=== PATIENT | male | born 1940 | race Caucasian/White ===

== ENCOUNTER 2018-03-25 13:43 | Inpatient (IN) | payer OTHER ==
[2018-03-25] MEDS ORDERED: CEFTRIAXONE 1 GM PDS 1 GM in SODIUM CHLORIDE 0.9% 50 ML 50 ML IV ONE (14:54)
[2018-03-25] MEDS ORDERED: CEFTRIAXONE 1 GM PDS ONE (15:14)
[2018-03-25 15:39] LABS: HEMATOCRIT 25 % (39-53); HEMOGLOBIN 8.1 gm/dl (13.5-17.7); MEAN CORPUSCULAR HEMOGLOBIN 29.1 pg (27.0-32.0); MEAN CORPUSCULAR HGB CONC 32.9 gm/dl (32.0-36.0); MEAN CORPUSCULAR VOLUME 89 fL (80-100)
[2018-03-25 15:40] LABS: ALBUMIN 2.5 gm/dl (3.4-5.0); BILIRUBIN,TOTAL 1.2 mg/dl (0.2-1.0); CALCIUM 8.4 mg/dl (8.5-10.1); POTASSIUM 4.1 mMol/L (3.5-5.1); TOTAL PROTEIN 6.3 gm/dl (6.4-8.2)
[2018-03-25 15:46] LABS: CREATININE 2.19 mg/dl (0.80-1.30)
[2018-03-25 15:50] LABS: CARBON DIOXIDE 29.2 mEq/L (21-32)
[2018-03-25 15:56] LABS: ANISOCYTOSIS MOD AMT; BAND NEUTROPHILS % (MANUAL) 17 %; BASOPHILS % (MANUAL) 0 % (0-3); EOSINOPHILS % (MANUAL) 0 % (0-9); LYMPHOCYTES % (MANUAL) 4 % (10-50); METAMYELOCYTES%(MANUAL) 1; MONOCYTES % (MANUAL) 1 % (0-12); NEUTROPHILS % (MANUAL) 77 % (37-80); OVALOCYTES PRESENT; PLATELET MORPHOLOGY COMMENT ADEQUATE; POIKILOCYTOSIS MOD AMT
[2018-03-25 15:57] LABS: BURR CELLS PRESENT
[2018-03-25] MEDS ORDERED: SODIUM CHLORIDE 0.9% 1000ML 1,000 ML IV ONE (16:09)
[2018-03-25 17:11] LABS: INR 1.35 (0.86-1.12)
[2018-03-25] MEDS: ENOXAPARIN 100 MG SOL SC SCH (19:44)
[2018-03-25] MEDS: SODIUM CHLORIDE 0.9% 1000ML 1,000 ML IV SCH (19:45)
[2018-03-25] MEDS: ACETAMINOPHEN 500 MG 500 MG TAB PO PRN (20:19)
[2018-03-25] MEDS: METOPROLOL TARTRATE 50 MG TAB PO SCH (20:19)
[2018-03-26] MEDS: SODIUM CHLORIDE 0.9% 1000ML 1,000 ML IV SCH (05:17)
[2018-03-26] MEDS: ENOXAPARIN 100 MG SOL SC SCH ×2 (06:42→19:23)
[2018-03-26 07:22] LABS: HEMATOCRIT 24 % (39-53); HEMOGLOBIN 7.7 gm/dl (13.5-17.7); MEAN CORPUSCULAR HEMOGLOBIN 28.7 pg (27.0-32.0); MEAN CORPUSCULAR HGB CONC 32.2 gm/dl (32.0-36.0); MEAN CORPUSCULAR VOLUME 89 fL (80-100)
[2018-03-26 07:24] LABS: ALBUMIN 2.2 gm/dl (3.4-5.0); BILIRUBIN,TOTAL 1.1 mg/dl (0.2-1.0); CALCIUM 8.2 mg/dl (8.5-10.1); CREATININE 1.67 mg/dl (0.80-1.30); POTASSIUM 3.7 mMol/L (3.5-5.1); TOTAL PROTEIN 5.8 gm/dl (6.4-8.2)
[2018-03-26 08:00] LABS: BAND NEUTROPHILS % (MANUAL) 36 %; BASOPHILS % (MANUAL) 0 % (0-3); EOSINOPHILS % (MANUAL) 0 % (0-9); LYMPHOCYTES % (MANUAL) 4 % (10-50); MONOCYTES % (MANUAL) 1 % (0-12); NEUTROPHILS % (MANUAL) 59 % (37-80); OVALOCYTES PRESENT; POIKILOCYTOSIS SLIGHT AMT; SPHEROCYTES PRESNT
[2018-03-26 08:01] LABS: BURR CELLS PRESENT
[2018-03-26] MEDS: LEVOFLOXACIN 500 MG TAB PO SCH (08:10)
[2018-03-26] MEDS: METOPROLOL TARTRATE 50 MG TAB PO SCH ×2 (08:10→20:33)
[2018-03-26] MEDS: DILTIAZEM ER 120 MG C24 PO SCH (08:10)
[2018-03-26] MEDS ORDERED: WARFARIN SODIUM 2.5 MG TAB PO SCH ×2 (09:00→18:00)
[2018-03-26] MEDS: ACETAMINOPHEN 500 MG 500 MG TAB PO PRN (22:36)
[2018-03-27] MEDS: ALBUTEROL/IPRATROPIUM 1 VIAL SOL INH PRN (04:30)
[2018-03-27] MEDS: ACETAMINOPHEN 500 MG 500 MG TAB PO PRN ×3 (04:53→23:36)
[2018-03-27 07:06] LABS: CALCIUM 8.1 mg/dl (8.5-10.1); CREATININE 1.45 mg/dl (0.80-1.30); POTASSIUM 3.5 mMol/L (3.5-5.1)
[2018-03-27 07:14] LABS: BASOPHILS % (AUTO) 0 % (0-3); EOSINOPHILS % (AUTO) 0 % (0-9); HEMATOCRIT 21 % (39-53); LYMPHOCYTES % (AUTO) 3.842 % (10-50); MEAN CORPUSCULAR HEMOGLOBIN 29.1 pg (27.0-32.0); MEAN CORPUSCULAR HGB CONC 33.1 gm/dl (32.0-36.0); MEAN CORPUSCULAR VOLUME 88 fL (80-100); MONOCYTES % (AUTO) 5.9 % (0-12); NEUTROPHILS % (AUTO) 89.8 % (37-80)
[2018-03-27 07:17] LABS: CARBON DIOXIDE 29.7 mEq/L (21-32)
[2018-03-27 07:28] LABS: INR 1.2 (0.86-1.12)
[2018-03-27] MEDS: ENOXAPARIN 100 MG SOL SC SCH (07:57)
[2018-03-27] MEDS ORDERED: FUROSEMIDE 20mg SOL IV SCH (08:00)
[2018-03-27] MEDS ORDERED: ENOXAPARIN 40 MG SOL SC SCH (08:15)
[2018-03-27] MEDS: METOPROLOL TARTRATE 50 MG TAB PO SCH ×2 (08:26→20:32)
[2018-03-27] MEDS: LEVOFLOXACIN 500 MG TAB PO SCH (08:26)
[2018-03-27] MEDS: DILTIAZEM ER 120 MG C24 PO SCH (08:26)
[2018-03-27] MEDS ORDERED: TORSEMIDE 20 MG TAB PO SCH (09:00)
[2018-03-27] MEDS: TORSEMIDE 10 MG TABLET PO SCH (09:41)
[2018-03-27 11:18] LABS: ABO B; ANTIBODY SCREEN Negative; UNIT TYPE O NEGATIVE
[2018-03-27 13:39] LABS: RH TYPE Negative
[2018-03-27] MEDS ORDERED: TORSEMIDE 10 MG TABLET PO SCH ×2 (14:00)
[2018-03-27] MEDS ORDERED: WARFARIN SODIUM 2.5 MG TAB PO SCH (18:00)
[2018-03-27] MEDS ORDERED: SODIUM CHLORIDE 0.9% 50 ML 50 ML IV ONE ×3 (18:16→23:11)
[2018-03-27] MEDS ORDERED: CEFAZOLIN SODIUM 1 GM PDS ONE ×3 (18:16→23:11)
[2018-03-27] MEDS: CEFAZOLIN SODIUM 1 GM PDS 1 GM in SODIUM CHLORIDE 0.9% 50 ML 50 ML IV SCH ×2 (18:24→23:36)
[2018-03-27 19:29] LABS: UNIT TYPE B NEGATIVE
[2018-03-27 19:30] LABS: UNIT TYPE B NEGATIVE
[2018-03-27] MEDS: SODIUM CHLORIDE 0.9% FLUSH 10 ML SOL IV PRN (23:37)
[2018-03-28] MEDS ORDERED: SODIUM CHLORIDE 0.9% 50 ML 50 ML IV ONE ×4 (05:28→20:28)
[2018-03-28] MEDS ORDERED: CEFAZOLIN SODIUM 1 GM PDS ONE ×4 (05:28→20:27)
[2018-03-28] MEDS: CEFAZOLIN SODIUM 1 GM PDS 1 GM in SODIUM CHLORIDE 0.9% 50 ML 50 ML IV SCH ×4 (05:41→23:09)
[2018-03-28 07:37] LABS: CALCIUM 8.1 mg/dl (8.5-10.1); CARBON DIOXIDE 32.4 mEq/L (21-32); CREATININE 1.46 mg/dl (0.80-1.30)
[2018-03-28 07:48] LABS: POTASSIUM 2.9 mMol/L (3.5-5.1)
[2018-03-28 07:52] LABS: BASOPHILS % (AUTO) 1 % (0-3); EOSINOPHILS % (AUTO) 0 % (0-9); HEMATOCRIT 28 % (39-53); HEMOGLOBIN 9.1 gm/dl (13.5-17.7); LYMPHOCYTES % (AUTO) 7.685 % (10-50); MEAN CORPUSCULAR HEMOGLOBIN 28.5 pg (27.0-32.0); MEAN CORPUSCULAR HGB CONC 32.2 gm/dl (32.0-36.0); MEAN CORPUSCULAR VOLUME 89 fL (80-100); MONOCYTES % (AUTO) 6.4 % (0-12); NEUTROPHILS % (AUTO) 84.6 % (37-80)
[2018-03-28] MEDS ORDERED: POTASSIUM CHLORIDE 2 MEQ/ML 60 MEQ, LIDOCAINE HCL 1% MDV 2 ML in SODIUM CHLORIDE 0.9% 1... IV ONE (08:00)
[2018-03-28] MEDS ORDERED: POTASSIUM CHLORIDE 10 MEQ TER PO SCH (08:00)
[2018-03-28] MEDS: TORSEMIDE 10 MG TABLET PO SCH (08:41)
[2018-03-28] MEDS: DILTIAZEM ER 120 MG C24 PO SCH (08:41)
[2018-03-28] MEDS: LEVOFLOXACIN 500 MG TAB PO SCH (08:42)
[2018-03-28] MEDS: METOPROLOL TARTRATE 50 MG TAB PO SCH ×2 (08:42→19:50)
[2018-03-28] MEDS ORDERED: ENOXAPARIN 40 MG SOL SC SCH ×2 (09:00)
[2018-03-28] MEDS ORDERED: POTASSIUM CHLORIDE 2 MEQ/ML SOL IV ONE (09:33)
[2018-03-28] MEDS ORDERED: LIDOCAINE HCL 1% MPF 30 SOL ONE (09:33)
[2018-03-28] MEDS: ACETAMINOPHEN 500 MG 500 MG TAB PO PRN ×2 (15:04→20:54)
[2018-03-28] MEDS ORDERED: POTASSIUM CHLORIDE 10 MEQ CAPSULE PO ONE (20:00)
[2018-03-28] MEDS: SODIUM CHLORIDE 0.9% FLUSH 10 ML SOL IV PRN (23:15)
[2018-03-29] MEDS: CEFAZOLIN SODIUM 1 GM PDS 1 GM in SODIUM CHLORIDE 0.9% 50 ML 50 ML IV SCH ×4 (05:21→23:19)
[2018-03-29 07:31] LABS: CALCIUM 8.2 mg/dl (8.5-10.1); CREATININE 1.32 mg/dl (0.80-1.30); POTASSIUM 3.6 mMol/L (3.5-5.1)
[2018-03-29 07:38] LABS: BASOPHILS % (AUTO) 1 % (0-3); EOSINOPHILS % (AUTO) 1 % (0-9); HEMATOCRIT 28 % (39-53); LYMPHOCYTES % (AUTO) 10.55 % (10-50); MEAN CORPUSCULAR HEMOGLOBIN 28.8 pg (27.0-32.0); MEAN CORPUSCULAR HGB CONC 32.5 gm/dl (32.0-36.0); MEAN CORPUSCULAR VOLUME 89 fL (80-100); MONOCYTES % (AUTO) 9.4 % (0-12); NEUTROPHILS % (AUTO) 77.7 % (37-80)
[2018-03-29] MEDS: METOPROLOL TARTRATE 50 MG TAB PO SCH ×2 (07:45→20:04)
[2018-03-29] MEDS: DILTIAZEM ER 120 MG C24 PO SCH (07:45)
[2018-03-29 07:51] LABS: CARBON DIOXIDE 33.1 mEq/L (21-32)
[2018-03-29] MEDS: ALBUTEROL/IPRATROPIUM 1 VIAL SOL INH PRN (08:53)
[2018-03-29] MEDS ORDERED: BISACODYL 5 MG TAB ECT PO ONE (09:00)
[2018-03-29] MEDS: TORSEMIDE 10 MG TABLET PO SCH (09:12)
[2018-03-29] MEDS: LEVOFLOXACIN 500 MG TAB PO SCH (09:13)
[2018-03-29] MEDS: POTASSIUM CHLORIDE 10 MEQ CAPSULE PO SCH (09:18)
[2018-03-29] MEDS ORDERED: CEFAZOLIN SODIUM 1 GM PDS ONE ×2 (10:56→17:35)
[2018-03-29] MEDS: ACETAMINOPHEN 500 MG 500 MG TAB PO PRN (11:21)
[2018-03-29] MEDS ORDERED: DILTIAZEM ER 120 MG C24 PO ONE (13:33)
[2018-03-29] MEDS ORDERED: METOPROLOL TARTRATE 50 MG TAB PO ONE (18:00)
[2018-03-29] MEDS: POLYETHYLENE GLYCOL 17 GM/1 TBS PDS PO SCH (18:10)
[2018-03-30] MEDS: ACETAMINOPHEN 500 MG 500 MG TAB PO PRN (01:19)
[2018-03-30] MEDS: POLYETHYLENE GLYCOL 17 GM/1 TBS PDS PO SCH ×2 (04:08→19:41)
[2018-03-30] MEDS: CEFAZOLIN SODIUM 1 GM PDS 1 GM in SODIUM CHLORIDE 0.9% 50 ML 50 ML IV SCH ×4 (04:27→22:50)
[2018-03-30 07:28] LABS: INR 1.18 (0.86-1.12)
[2018-03-30 08:11] LABS: CALCIUM 8.5 mg/dl (8.5-10.1); CARBON DIOXIDE 32.9 mEq/L (21-32); CREATININE 1.32 mg/dl (0.80-1.30); POTASSIUM 3.6 mMol/L (3.5-5.1)
[2018-03-30 08:12] LABS: BASOPHILS % (AUTO) 1 % (0-3); EOSINOPHILS % (AUTO) 2 % (0-9); HEMATOCRIT 30 % (39-53); HEMOGLOBIN 9.7 gm/dl (13.5-17.7); LYMPHOCYTES % (AUTO) 17.43 % (10-50); MEAN CORPUSCULAR HEMOGLOBIN 28.7 pg (27.0-32.0); MEAN CORPUSCULAR HGB CONC 32.1 gm/dl (32.0-36.0); MEAN CORPUSCULAR VOLUME 89 fL (80-100); MONOCYTES % (AUTO) 6.9 % (0-12); NEUTROPHILS % (AUTO) 73.6 % (37-80)
[2018-03-30] MEDS: DILTIAZEM ER 120 MG C24 PO SCH (08:20)
[2018-03-30] MEDS: METOPROLOL TARTRATE 50 MG TAB PO SCH ×3 (08:20→20:49)
[2018-03-30] MEDS: TORSEMIDE 10 MG TABLET PO SCH (09:02)
[2018-03-30] MEDS: LEVOFLOXACIN 500 MG TAB PO SCH (09:02)
[2018-03-30] MEDS: POTASSIUM CHLORIDE 10 MEQ CAPSULE PO SCH (09:07)
[2018-03-30] MEDS: ENOXAPARIN 100 MG SOL SC SCH ×2 (09:16→21:04)
[2018-03-30] MEDS: GLIPIZIDE 5 MG TAB PO SCH ×2 (09:17→20:49)
[2018-03-30] MEDS ORDERED: CEFTRIAXONE 1 GM PDS ONE (11:23)
[2018-03-30] MEDS ORDERED: SODIUM CHLORIDE 0.9% 50 ML 50 ML IV ONE ×3 (11:23→22:46)
[2018-03-30] MEDS ORDERED: CEFAZOLIN SODIUM 1 GM PDS ONE ×2 (16:44→22:46)
[2018-03-30] MEDS: SODIUM CHLORIDE 0.9% FLUSH 10 ML SOL IV PRN ×2 (17:05→20:49)
[2018-03-31] MEDS: ACETAMINOPHEN 500 MG 500 MG TAB PO PRN ×3 (01:23→20:35)
[2018-03-31] MEDS: POLYETHYLENE GLYCOL 17 GM/1 TBS PDS PO SCH (04:04)
[2018-03-31] MEDS ORDERED: SODIUM CHLORIDE 0.9% 50 ML 50 ML IV ONE (05:11)
[2018-03-31] MEDS ORDERED: CEFAZOLIN SODIUM 1 GM PDS ONE (05:11)
[2018-03-31] MEDS: SODIUM CHLORIDE 0.9% FLUSH 10 ML SOL IV PRN (05:17)
[2018-03-31] MEDS: CEFAZOLIN SODIUM 1 GM PDS 1 GM in SODIUM CHLORIDE 0.9% 50 ML 50 ML IV SCH (05:17)
[2018-03-31 07:26] LABS: BASOPHILS % (AUTO) 1 % (0-3); EOSINOPHILS % (AUTO) 1 % (0-9); HEMATOCRIT 28 % (39-53); HEMOGLOBIN 9.3 gm/dl (13.5-17.7); LYMPHOCYTES % (AUTO) 15.96 % (10-50); MEAN CORPUSCULAR HEMOGLOBIN 28.9 pg (27.0-32.0); MEAN CORPUSCULAR VOLUME 88 fL (80-100); MONOCYTES % (AUTO) 8.9 % (0-12); NEUTROPHILS % (AUTO) 72.5 % (37-80)
[2018-03-31 07:38] LABS: CALCIUM 8.2 mg/dl (8.5-10.1); CREATININE 1.26 mg/dl (0.80-1.30); POTASSIUM 3.6 mMol/L (3.5-5.1)
[2018-03-31 07:42] LABS: CARBON DIOXIDE 33.2 mEq/L (21-32)
[2018-03-31] MEDS: METOPROLOL TARTRATE 50 MG TAB PO SCH (08:15)
[2018-03-31] MEDS: TORSEMIDE 10 MG TABLET PO SCH (08:15)
[2018-03-31] MEDS: LEVOFLOXACIN 500 MG TAB PO SCH (08:16)
[2018-03-31] MEDS: GLIPIZIDE 5 MG TAB PO SCH ×2 (08:16→17:39)
[2018-03-31] MEDS: DILTIAZEM ER 120 MG C24 PO SCH (08:16)
[2018-03-31] MEDS: ENOXAPARIN 100 MG SOL SC SCH ×2 (09:03→20:34)
[2018-03-31] MEDS: CEPHALEXIN 250 MG/5 ML BOTTLE PO SCH ×3 (10:09→20:34)
[2018-03-31] MEDS ORDERED: METOPROLOL SUCCINATE 50 MG ER TAB PO SCH (21:00)
[2018-04-01] MEDS: CEPHALEXIN 250 MG/5 ML BOTTLE PO SCH ×2 (02:24→09:20)
[2018-04-01] MEDS: ACETAMINOPHEN 500 MG 500 MG TAB PO PRN ×2 (02:25→09:21)
[2018-04-01 07:07] LABS: CREATININE 1.3 mg/dl (0.80-1.30); POTASSIUM 3.7 mMol/L (3.5-5.1)
[2018-04-01 07:13] LABS: CARBON DIOXIDE 34.8 mEq/L (21-32)
[2018-04-01 07:32] LABS: BASOPHILS % (AUTO) 1 % (0-3); EOSINOPHILS % (AUTO) 1 % (0-9); HEMATOCRIT 31 % (39-53); HEMOGLOBIN 9.8 gm/dl (13.5-17.7); LYMPHOCYTES % (AUTO) 12.86 % (10-50); MEAN CORPUSCULAR HEMOGLOBIN 28.3 pg (27.0-32.0); MEAN CORPUSCULAR HGB CONC 32.1 gm/dl (32.0-36.0); MEAN CORPUSCULAR VOLUME 88 fL (80-100); NEUTROPHILS % (AUTO) 75.2 % (37-80)
[2018-04-01 07:51] LABS: INR 1.18 (0.86-1.12)
[2018-04-01 09:02] VITALS: BP 149/96; PULSE 104; RESP 16; TEMP 98.6; O2SAT 95
[2018-04-01] MEDS: ENOXAPARIN 100 MG SOL SC SCH (09:20)
[2018-04-01] MEDS: DILTIAZEM ER 120 MG C24 PO SCH (09:21)
[2018-04-01] MEDS: TORSEMIDE 10 MG TABLET PO SCH (09:21)
[2018-04-01] MEDS: LEVOFLOXACIN 500 MG TAB PO SCH (09:21)
[2018-04-01] MEDS: GLIPIZIDE 5 MG TAB PO SCH (09:22)
== END 2018-04-01 14:00 | disposition home or self-care (01) | DRG 603 ==
LOC: ED 13:43 → ACUTE CARE 16:20
PROVIDERS: ADMIT Family Medicine; ATTEND Family Medicine
DX: L03.115 Cellulitis of right lower limb (principal); N17.9 Acute kidney failure, unspecified; E87.1 Hypo-osmolality and hyponatremia; K62.5 Hemorrhage of anus and rectum; E11.9 Type 2 diabetes mellitus without complications; Z79.01 Long term (current) use of anticoagulants; I48.91 Unspecified atrial fibrillation; I10 Essential (primary) hypertension; S81.831A Puncture wound without foreign body, right lower leg, initial encounter; I50.9 Heart failure, unspecified; D64.9 Anemia, unspecified; D72.829 Elevated white blood cell count, unspecified
CPT/HCPCS: 36415; 80048; 80053; 82962; 84132; 85007; 85025; 85027; 85610; 86850; 86900; 86901; 86920; 87040; 87070; 87077; 87186; 93012; 93306; 94640; 96365; 99070; 99282; 99283; J0690; J0696; J1650; J3480; P9016; A4450; A6232; A6446; A9270-GY; J2001

== ENCOUNTER 2018-06-20 10:14 | Inpatient (IN) | payer OTHER ==
[2018-06-20 11:52] LABS: ABO B; ANTIBODY SCREEN Negative; RH TYPE Negative
[2018-06-20] MEDS ORDERED: DOCUSATE SODIUM 100 MG SGL PO PRN (14:26)
[2018-06-20] MEDS ORDERED: POTASSIUM CHLORIDE 2 MEQ/ML 60 MEQ, LIDOCAINE HCL 1% MDV 2 ML in SODIUM CHLORIDE 0.9% 1... IV ONE (14:31)
[2018-06-20] MEDS ORDERED: POTASSIUM CHLORIDE 2 MEQ/ML SOL IV ONE (15:08)
[2018-06-20] MEDS: TORSEMIDE 10 MG TABLET PO SCH (15:14)
[2018-06-20] MEDS ORDERED: LIDOCAINE HCL 1% MPF 30 SOL ONE (15:19)
[2018-06-20] MEDS: SODIUM CHLORIDE 0.9% FLUSH 10 ML SOL IV PRN (15:22)
[2018-06-20 15:55] LABS: UNIT TYPE B NEGATIVE
[2018-06-20 15:56] LABS: UNIT TYPE B NEGATIVE
[2018-06-20] MEDS: SODIUM CHLORIDE 0.9% 500 ML 500 ML IV SCH (16:08)
[2018-06-20] MEDS: FUROSEMIDE 40 MG SOL IV SCH ×2 (18:02→19:57)
[2018-06-20] MEDS: ACETAMINOPHEN 500 MG 500 MG TAB PO PRN (18:34)
[2018-06-20] MEDS: METOPROLOL SUCCINATE 50 MG ER TAB PO SCH (20:08)
[2018-06-20] MEDS: ATORVASTATIN 10 MG TAB PO SCH (20:16)
[2018-06-21 07:29] LABS: BASOPHILS % (AUTO) 1 % (0-3); EOSINOPHILS % (AUTO) 1 % (0-9); HEMATOCRIT 26 % (39-53); HEMOGLOBIN 8.2 gm/dl (13.5-17.7); LYMPHOCYTES % (AUTO) 18.2 % (10-50); MEAN CORPUSCULAR HEMOGLOBIN 27.8 pg (27.0-32.0); MEAN CORPUSCULAR HGB CONC 31.9 gm/dl (32.0-36.0); MEAN CORPUSCULAR VOLUME 87 fL (80-100); MONOCYTES % (AUTO) 8.9 % (0-12); NEUTROPHILS % (AUTO) 71.3 % (37-80)
[2018-06-21 07:45] LABS: CALCIUM 8.1 mg/dl (8.5-10.1); CREATININE 1.52 mg/dl (0.80-1.30)
[2018-06-21 07:51] LABS: CARBON DIOXIDE 35.3 mEq/L (21-32)
[2018-06-21] MEDS: POTASSIUM CHLORIDE 10 MEQ TER PO SCH (09:02)
[2018-06-21] MEDS: TORSEMIDE 10 MG TABLET PO SCH (09:02)
[2018-06-21] MEDS: DILTIAZEM ER 120 MG C24 PO SCH (09:02)
[2018-06-21] MEDS: SODIUM CHLORIDE 0.9% FLUSH 10 ML SOL IV PRN (09:06)
[2018-06-21] MEDS ORDERED: POTASSIUM CHLORIDE 2 MEQ/ML 60 MEQ, LIDOCAINE HCL 1% MDV 2 ML in SODIUM CHLORIDE 0.9% 1... IV ONE (09:28)
[2018-06-21] MEDS ORDERED: FUROSEMIDE 40 MG SOL IV SCH (09:30)
[2018-06-21] MEDS ORDERED: LIDOCAINE HCL 1% MPF 30 SOL ONE (09:45)
[2018-06-21] MEDS ORDERED: POTASSIUM CHLORIDE 2 MEQ/ML SOL IV ONE (09:46)
[2018-06-21] MEDS ORDERED: PEG ELECTROLYTE LAVAGE SOLUT 4000 ML PDS PO SCH (10:30)
[2018-06-21 11:55] LABS: ABO B; ANTIBODY SCREEN Negative; RH TYPE Negative; UNIT TYPE O NEGATIVE
[2018-06-21 11:57] LABS: UNIT TYPE O NEGATIVE
[2018-06-21] MEDS ORDERED: POTASSIUM CHLORIDE 10 MEQ TER PO SCH (12:00)
[2018-06-21] MEDS: SODIUM CHLORIDE 0.9% 500 ML 500 ML IV SCH (12:15)
[2018-06-21] MEDS: FUROSEMIDE 40 MG SOL IV SCH (14:15)
[2018-06-21 17:24] LABS: CALCIUM 8.4 mg/dl (8.5-10.1); CARBON DIOXIDE 34.3 mEq/L (21-32); CREATININE 1.51 mg/dl (0.80-1.30); INR 1.23 (0.86-1.12)
[2018-06-21] MEDS: ATORVASTATIN 10 MG TAB PO SCH (21:25)
[2018-06-21] MEDS: METOPROLOL SUCCINATE 50 MG ER TAB PO SCH (21:26)
[2018-06-21] MEDS: ACETAMINOPHEN 500 MG 500 MG TAB PO PRN (21:30)
[2018-06-22 07:23] LABS: CALCIUM 8.3 mg/dl (8.5-10.1); CREATININE 1.4 mg/dl (0.80-1.30); POTASSIUM 3.4 mMol/L (3.5-5.1)
[2018-06-22 07:24] LABS: BASOPHILS % (AUTO) 1 % (0-3); EOSINOPHILS % (AUTO) 1 % (0-9); HEMATOCRIT 29 % (39-53); HEMOGLOBIN 9.1 gm/dl (13.5-17.7); LYMPHOCYTES % (AUTO) 18.4 % (10-50); MEAN CORPUSCULAR HEMOGLOBIN 27.2 pg (27.0-32.0); MEAN CORPUSCULAR HGB CONC 31.3 gm/dl (32.0-36.0); MEAN CORPUSCULAR VOLUME 87 fL (80-100); MONOCYTES % (AUTO) 8.8 % (0-12); NEUTROPHILS % (AUTO) 70.3 % (37-80)
[2018-06-22] MEDS ORDERED: PROPOFOL 500 MG/50 ML EMU IV ONE (07:37)
[2018-06-22] MEDS ORDERED: FUROSEMIDE 20mg SOL IV SCH (08:15)
[2018-06-22] MEDS: DILTIAZEM ER 120 MG C24 PO SCH (09:04)
[2018-06-22 09:29] LABS: UNIT TYPE O NEGATIVE
[2018-06-22 11:41] VITALS: RESP 20
[2018-06-22] MEDS ORDERED: POTASSIUM CHLORIDE 10 MEQ TER PO SCH (12:00)
[2018-06-22] MEDS: POTASSIUM CHLORIDE 10 MEQ TER PO SCH (12:23)
[2018-06-22] MEDS: TORSEMIDE 10 MG TABLET PO SCH (12:24)
[2018-06-22 15:11] LABS: CALCIUM 8.7 mg/dl (8.5-10.1); CARBON DIOXIDE 36.2 mEq/L (21-32); CREATININE 1.35 mg/dl (0.80-1.30); POTASSIUM 3.6 mMol/L (3.5-5.1)
[2018-06-22 16:39] VITALS: BP 145/84; PULSE 67; TEMP 97.3; O2SAT 97
== END 2018-06-22 18:25 | disposition home or self-care (01) | DRG 812 ==
LOC: ACUTE CARE 10:24
PROVIDERS: ADMIT Family Medicine; ATTEND Family Medicine
PROC: 30233N1 Transfusion of Nonautologous Red Blood Cells into Peripheral Vein, Percutaneous Approach (ICD-10-PCS; principal; 2018-06-20)
PROC: 30233N1 Transfusion of Nonautologous Red Blood Cells into Peripheral Vein, Percutaneous Approach (ICD-10-PCS; 2018-06-21)
PROC: 0DBK8ZX Excision of Ascending Colon, Via Natural or Artificial Opening Endoscopic, Diagnostic (ICD-10-PCS; 2018-06-22)
PROC: 0DBN8ZX Excision of Sigmoid Colon, Via Natural or Artificial Opening Endoscopic, Diagnostic (ICD-10-PCS; 2018-06-22)
PROC: 0DBM8ZX Excision of Descending Colon, Via Natural or Artificial Opening Endoscopic, Diagnostic (ICD-10-PCS; 2018-06-22)
PROC: 0DBH8ZZ Excision of Cecum, Via Natural or Artificial Opening Endoscopic (ICD-10-PCS; 2018-06-22)
DX: D64.9 Anemia, unspecified (principal); E87.1 Hypo-osmolality and hyponatremia; K92.1 Melena; K57.32 Diverticulitis of large intestine without perforation or abscess without bleeding; I48.91 Unspecified atrial fibrillation; E87.6 Hypokalemia; R06.02 Shortness of breath; R19.7 Diarrhea, unspecified; R42 Dizziness and giddiness; I50.9 Heart failure, unspecified; Z79.01 Long term (current) use of anticoagulants; Q82.0 Hereditary lymphedema; Z80.0 Family history of malignant neoplasm of digestive organs; K64.9 Unspecified hemorrhoids; K63.5 Polyp of colon; D12.2 Benign neoplasm of ascending colon; D12.4 Benign neoplasm of descending colon; D12.5 Benign neoplasm of sigmoid colon
CPT/HCPCS: 36415; 80048; 82962; 85018; 85025; 85610; 86850; 86900; 86901; 86920; 93012; 99070; J1940; J3480; P9016; A9270-GY; J2001; J2704

== ENCOUNTER 2018-08-12 12:35 | Inpatient (IN) | payer OTHER ==
[2018-08-12] MEDS ORDERED: SODIUM CHLORIDE 0.9% FLUSH 10 ML SOL IV PRN (12:44)
[2018-08-12] MEDS ORDERED: FUROSEMIDE 20mg SOL IV SCH (12:45)
[2018-08-12] MEDS ORDERED: SODIUM CHLORIDE 0.9% 500 ML 500 ML IV SCH (12:45)
[2018-08-12] MEDS ORDERED: ACETAMINOPHEN 500 MG 500 MG TAB PO PRN (15:12)
[2018-08-12] MEDS ORDERED: DOCUSATE SODIUM 100 MG SGL PO PRN (15:12)
[2018-08-12] MEDS ORDERED: DILTIAZEM ER 120 MG C24 PO SCH (15:15)
[2018-08-12] MEDS ORDERED: SODIUM CHLORIDE 0.9% 1000ML 1,000 ML IV SCH (15:15)
[2018-08-12] MEDS: SODIUM CHLORIDE 0.9% 1000ML 1,000 ML IV SCH (15:41)
[2018-08-12] MEDS: SODIUM CHLORIDE 0.9% FLUSH 10 ML SOL IV SCH ×2 (15:49→20:37)
[2018-08-12 19:13] LABS: ABO B; ANTIBODY SCREEN Negative; RH TYPE Negative; UNIT TYPE O NEGATIVE
[2018-08-12] MEDS: MECLIZINE HYDROCHLORIDE 12.5 MG TAB PO SCH (20:26)
[2018-08-12] MEDS: TRAZODONE HYDROCHLORIDE 50 MG TAB PO SCH (20:27)
[2018-08-13] MEDS: SODIUM CHLORIDE 0.9% 1000ML 1,000 ML IV SCH ×2 (03:00→12:40)
[2018-08-13] MEDS: SODIUM CHLORIDE 0.9% FLUSH 10 ML SOL IV SCH ×3 (05:09→20:59)
[2018-08-13 07:40] LABS: BASOPHILS % (AUTO) 1 % (0-3); EOSINOPHILS % (AUTO) 5 % (0-9); HEMATOCRIT 25 % (39-53); HEMOGLOBIN 7.6 gm/dl (13.5-17.7); LYMPHOCYTES % (AUTO) 21.3 % (10-50); MEAN CORPUSCULAR HEMOGLOBIN 27.1 pg (27.0-32.0); MEAN CORPUSCULAR HGB CONC 30.9 gm/dl (32.0-36.0); MEAN CORPUSCULAR VOLUME 88 fL (80-100); MONOCYTES % (AUTO) 8.9 % (0-12); NEUTROPHILS % (AUTO) 63.3 % (37-80)
[2018-08-13 07:42] LABS: CALCIUM 8.4 mg/dl (8.5-10.1); CARBON DIOXIDE 28.7 mEq/L (21-32); CREATININE 2.02 mg/dl (0.80-1.30); POTASSIUM 4.4 mMol/L (3.5-5.1)
[2018-08-13 08:05] LABS: ALBUMIN 2.3 gm/dl (3.4-5.0); BILIRUBIN,TOTAL 2.7 mg/dl (0.2-1.0); TOTAL PROTEIN 5.5 gm/dl (6.4-8.2)
[2018-08-13] MEDS ORDERED: LORAZEPAM 0.5 MG TAB PO PRN (08:31)
[2018-08-13] MEDS ORDERED: DILTIAZEM ER 120 MG C24 PO SCH (09:00)
[2018-08-13 09:28] LABS: UNIT TYPE O NEGATIVE
[2018-08-13 09:29] LABS: UNIT TYPE O NEGATIVE
[2018-08-13] MEDS: DILTIAZEM ER 120 MG C24 PO SCH (09:53)
[2018-08-13] MEDS ORDERED: FUROSEMIDE 20mg SOL IV SCH (12:45)
[2018-08-13] MEDS: MECLIZINE HYDROCHLORIDE 12.5 MG TAB PO SCH (21:00)
[2018-08-13] MEDS: TRAZODONE HYDROCHLORIDE 50 MG TAB PO SCH (21:00)
[2018-08-14] MEDS: SODIUM CHLORIDE 0.9% FLUSH 10 ML SOL IV SCH (06:08)
[2018-08-14 07:28] LABS: ALBUMIN 2.2 gm/dl (3.4-5.0); BILIRUBIN,TOTAL 1.9 mg/dl (0.2-1.0); CALCIUM 8.3 mg/dl (8.5-10.1); CARBON DIOXIDE 27.7 mEq/L (21-32); CREATININE 2.01 mg/dl (0.80-1.30); TOTAL PROTEIN 5.4 gm/dl (6.4-8.2)
[2018-08-14 07:34] LABS: BASOPHILS % (AUTO) 1 % (0-3); EOSINOPHILS % (AUTO) 6 % (0-9); HEMATOCRIT 28 % (39-53); HEMOGLOBIN 8.9 gm/dl (13.5-17.7); LYMPHOCYTES % (AUTO) 16.9 % (10-50); MEAN CORPUSCULAR HEMOGLOBIN 27.8 pg (27.0-32.0); MEAN CORPUSCULAR HGB CONC 32.2 gm/dl (32.0-36.0); MEAN CORPUSCULAR VOLUME 86 fL (80-100); MONOCYTES % (AUTO) 7.5 % (0-12); NEUTROPHILS % (AUTO) 67.8 % (37-80)
[2018-08-14] MEDS ORDERED: TORSEMIDE 10 MG TABLET PO SCH (09:00)
[2018-08-14] MEDS: DILTIAZEM ER 120 MG C24 PO SCH (09:11)
[2018-08-14 17:39] VITALS: BP 129/75; PULSE 89; RESP 20; TEMP 97.3; O2SAT 99
== END 2018-08-14 18:20 | disposition home or self-care (01) | DRG 641 ==
LOC: ACUTE CARE 12:50
PROVIDERS: ADMIT Family Medicine; ATTEND Family Medicine
PROC: 30233N1 Transfusion of Nonautologous Red Blood Cells into Peripheral Vein, Percutaneous Approach (ICD-10-PCS; principal; 2018-08-13)
DX: E87.5 Hyperkalemia (principal); I50.22 Chronic systolic (congestive) heart failure; R17 Unspecified jaundice; R94.5 Abnormal results of liver function studies; I48.91 Unspecified atrial fibrillation; E87.1 Hypo-osmolality and hyponatremia; D64.9 Anemia, unspecified; R06.02 Shortness of breath
CPT/HCPCS: 36415; 71046; 72120; 80053; 82962; 85018; 85025; 86850; 86900; 86901; 86920; 99070; J1940; P9016; A9270-GY

== ENCOUNTER 2018-10-02 09:34 | Inpatient (IN) | payer OTHER ==
[2018-10-02] MEDS ORDERED: POTASSIUM CHLORIDE 2 MEQ/ML 40 MEQ, LIDOCAINE HCL 1% MDV 2 ML in SODIUM CHLORIDE 0.9% 5... IV ONE (09:36)
[2018-10-02] MEDS ORDERED: POTASSIUM CHLORIDE 10 MEQ CAPSULE PO ONE (09:36)
[2018-10-02] MEDS ORDERED: METOLAZONE 2.5 MG TAB PO ONE (09:40)
[2018-10-02] MEDS ORDERED: POTASSIUM CHLORIDE 10 MEQ TER ONE (11:48)
[2018-10-02] MEDS ORDERED: POTASSIUM CHLORIDE 2 MEQ/ML SOL IV ONE (11:49)
[2018-10-02] MEDS ORDERED: LIDOCAINE HCL 1% MPF 30 SOL ONE (11:59)
[2018-10-02] MEDS ORDERED: FUROSEMIDE 40 MG SOL IV ONE ×2 (14:39→19:17)
[2018-10-02] MEDS: SODIUM CHLORIDE 0.9% FLUSH 10 ML SOL IV SCH ×2 (15:00→21:20)
[2018-10-02 19:50] LABS: POTASSIUM 3.8 mMol/L (3.5-5.1)
[2018-10-02 19:56] LABS: CALCIUM 8.5 mg/dl (8.5-10.1); CARBON DIOXIDE 34.8 mEq/L (21-32); CREATININE 1.8 mg/dl (0.80-1.30)
[2018-10-02] MEDS ORDERED: POTASSIUM CHLORIDE 10 MEQ TER PO ONE (20:26)
[2018-10-02] MEDS ORDERED: ATORVASTATIN 10 MG TAB ONE (20:55)
[2018-10-02] MEDS ORDERED: POTASSIUM CHLORIDE 10 MEQ CAPSULE PO SCH (21:00)
[2018-10-02] MEDS ORDERED: ATORVASTATIN CALCIUM 80 MG TAB PO SCH (21:00)
[2018-10-02] MEDS: ACETAMINOPHEN 500 MG 500 MG TAB PO PRN (21:08)
[2018-10-02] MEDS: MECLIZINE HYDROCHLORIDE 12.5 MG TAB PO SCH (21:08)
[2018-10-02] MEDS: TRAZODONE HYDROCHLORIDE 50 MG TAB PO SCH (21:08)
[2018-10-03] MEDS ORDERED: PATIENT EDUCATION 1 MISC PRN (00:28)
[2018-10-03] MEDS: SODIUM CHLORIDE 0.9% FLUSH 10 ML SOL IV SCH ×5 (01:29→21:26)
[2018-10-03] MEDS: ACETAMINOPHEN 500 MG 500 MG TAB PO PRN ×2 (06:37→21:28)
[2018-10-03 07:47] LABS: BASOPHILS % (AUTO) 1 % (0-3); EOSINOPHILS % (AUTO) 2 % (0-9); HEMATOCRIT 28 % (39-53); HEMOGLOBIN 8.7 gm/dl (13.5-17.7); LYMPHOCYTES % (AUTO) 9.7 % (10-50); MEAN CORPUSCULAR HEMOGLOBIN 28.7 pg (27.0-32.0); MEAN CORPUSCULAR HGB CONC 31.3 gm/dl (32.0-36.0); MEAN CORPUSCULAR VOLUME 92 fL (80-100); MONOCYTES % (AUTO) 8.3 % (0-12); NEUTROPHILS % (AUTO) 79.6 % (37-80)
[2018-10-03 07:52] LABS: CALCIUM 8.9 mg/dl (8.5-10.1); CREATININE 1.63 mg/dl (0.80-1.30); POTASSIUM 3.2 mMol/L (3.5-5.1)
[2018-10-03] MEDS ORDERED: FUROSEMIDE 40 MG SOL IV SCH ×3 (09:00→14:00)
[2018-10-03] MEDS: MULTIVITAMIN2 1 EA TAB PO SCH (09:40)
[2018-10-03] MEDS: METOLAZONE 2.5 MG TABLET PO SCH ×2 (09:40→13:10)
[2018-10-03] MEDS: ASCORBIC ACID 500 MG TAB PO SCH (09:40)
[2018-10-03] MEDS: DILTIAZEM ER 120 MG C24 PO SCH (09:40)
[2018-10-03] MEDS: POTASSIUM CHLORIDE 10 MEQ TER PO SCH ×3 (09:40→15:55)
[2018-10-03] MEDS ORDERED: ENOXAPARIN SODIUM 120 MG/0.8 ML SYRINGE SQ SCH (10:00)
[2018-10-03] MEDS ORDERED: ENOXAPARIN 40 MG SOL SC ONE (13:00)
[2018-10-03 20:29] LABS: CALCIUM 8.8 mg/dl (8.5-10.1); CREATININE 1.65 mg/dl (0.80-1.30); POTASSIUM 3.8 mMol/L (3.5-5.1)
[2018-10-03] MEDS: TRAZODONE HYDROCHLORIDE 50 MG TAB PO SCH (20:48)
[2018-10-03] MEDS ORDERED: POTASSIUM CHLORIDE 10 MEQ TER PO ONE (21:00)
[2018-10-03] MEDS ORDERED: TRAZODONE HYDROCHLORIDE 50 MG TAB PO ONE (21:00)
[2018-10-03] MEDS: MECLIZINE HYDROCHLORIDE 12.5 MG TAB PO SCH (21:29)
[2018-10-03] MEDS: ATORVASTATIN 10 MG TAB PO SCH (21:30)
[2018-10-04] MEDS: FUROSEMIDE 100 MG SOL IV SCH ×2 (05:57→13:54)
[2018-10-04] MEDS: SODIUM CHLORIDE 0.9% FLUSH 10 ML SOL IV SCH ×3 (05:58→21:52)
[2018-10-04 07:24] LABS: BASOPHILS % (AUTO) 1 % (0-3); EOSINOPHILS % (AUTO) 2 % (0-9); HEMATOCRIT 28 % (39-53); HEMOGLOBIN 8.8 gm/dl (13.5-17.7); LYMPHOCYTES % (AUTO) 12.5 % (10-50); MEAN CORPUSCULAR HEMOGLOBIN 28.6 pg (27.0-32.0); MEAN CORPUSCULAR HGB CONC 31.1 gm/dl (32.0-36.0); MEAN CORPUSCULAR VOLUME 92 fL (80-100); MONOCYTES % (AUTO) 7.9 % (0-12); NEUTROPHILS % (AUTO) 76.4 % (37-80)
[2018-10-04 07:33] LABS: CALCIUM 9.2 mg/dl (8.5-10.1); CARBON DIOXIDE 36.7 mEq/L (21-32); CREATININE 1.54 mg/dl (0.80-1.30); POTASSIUM 3.5 mMol/L (3.5-5.1)
[2018-10-04] MEDS: MULTIVITAMIN2 1 EA TAB PO SCH (08:43)
[2018-10-04] MEDS: DILTIAZEM ER 120 MG C24 PO SCH (08:43)
[2018-10-04] MEDS: METOLAZONE 2.5 MG TABLET PO SCH ×2 (08:44→11:34)
[2018-10-04] MEDS: ASCORBIC ACID 500 MG TAB PO SCH (08:44)
[2018-10-04] MEDS: ENOXAPARIN 40 MG SOL SC SCH (09:30)
[2018-10-04] MEDS: TRAZODONE HYDROCHLORIDE 50 MG TAB PO SCH (20:19)
[2018-10-04] MEDS: MECLIZINE HYDROCHLORIDE 12.5 MG TAB PO SCH (20:19)
[2018-10-04] MEDS: ATORVASTATIN 10 MG TAB PO SCH (20:20)
[2018-10-04] MEDS: GABAPENTIN 100 MG CAP PO SCH (20:20)
[2018-10-04] MEDS: ACETAMINOPHEN 500 MG 500 MG TAB PO PRN (20:24)
[2018-10-05] MEDS: FUROSEMIDE 100 MG SOL IV SCH ×2 (06:10→13:37)
[2018-10-05] MEDS: SODIUM CHLORIDE 0.9% FLUSH 10 ML SOL IV SCH ×3 (06:11→21:10)
[2018-10-05 07:15] LABS: CALCIUM 9.1 mg/dl (8.5-10.1); CARBON DIOXIDE 37.2 mEq/L (21-32); CREATININE 1.68 mg/dl (0.80-1.30); POTASSIUM 3.1 mMol/L (3.5-5.1)
[2018-10-05 07:18] LABS: BASOPHILS % (AUTO) 1 % (0-3); EOSINOPHILS % (AUTO) 3 % (0-9); HEMATOCRIT 29 % (39-53); HEMOGLOBIN 8.9 gm/dl (13.5-17.7); LYMPHOCYTES % (AUTO) 15.3 % (10-50); MEAN CORPUSCULAR HGB CONC 31.2 gm/dl (32.0-36.0); MEAN CORPUSCULAR VOLUME 93 fL (80-100); MONOCYTES % (AUTO) 10.4 % (0-12)
[2018-10-05] MEDS: MULTIVITAMIN2 1 EA TAB PO SCH (09:13)
[2018-10-05] MEDS: ASCORBIC ACID 500 MG TAB PO SCH (09:14)
[2018-10-05] MEDS: DILTIAZEM ER 120 MG C24 PO SCH (09:14)
[2018-10-05] MEDS: METOLAZONE 2.5 MG TABLET PO SCH ×2 (09:14→12:07)
[2018-10-05] MEDS: POTASSIUM CHLORIDE 10 MEQ TER PO SCH ×2 (09:45→11:33)
[2018-10-05] MEDS: ENOXAPARIN 40 MG SOL SC SCH (10:13)
[2018-10-05] MEDS ORDERED: DOCUSATE SODIUM 100 MG SGL PO PRN (19:32)
[2018-10-05] MEDS: ATORVASTATIN 10 MG TAB PO SCH (21:09)
[2018-10-05] MEDS: ACETAMINOPHEN 500 MG 500 MG TAB PO PRN (21:09)
[2018-10-05] MEDS: TRAZODONE HYDROCHLORIDE 50 MG TAB PO SCH (21:10)
[2018-10-05] MEDS: MECLIZINE HYDROCHLORIDE 12.5 MG TAB PO SCH (21:10)
[2018-10-05] MEDS: GABAPENTIN 100 MG CAP PO SCH (21:10)
[2018-10-06] MEDS: SODIUM CHLORIDE 0.9% FLUSH 10 ML SOL IV SCH ×3 (06:31→21:00)
[2018-10-06] MEDS: FUROSEMIDE 100 MG SOL IV SCH ×2 (06:31→13:52)
[2018-10-06 07:32] LABS: BASOPHILS % (AUTO) 1 % (0-3); EOSINOPHILS % (AUTO) 5 % (0-9); HEMATOCRIT 28 % (39-53); HEMOGLOBIN 8.8 gm/dl (13.5-17.7); LYMPHOCYTES % (AUTO) 15.6 % (10-50); MEAN CORPUSCULAR HEMOGLOBIN 28.9 pg (27.0-32.0); MEAN CORPUSCULAR HGB CONC 31.3 gm/dl (32.0-36.0); MEAN CORPUSCULAR VOLUME 93 fL (80-100); MONOCYTES % (AUTO) 8.4 % (0-12)
[2018-10-06 07:35] LABS: CALCIUM 9.3 mg/dl (8.5-10.1); CREATININE 1.59 mg/dl (0.80-1.30); POTASSIUM 3.3 mMol/L (3.5-5.1)
[2018-10-06] MEDS: ENOXAPARIN 40 MG SOL SC SCH (09:14)
[2018-10-06] MEDS: SENNOSIDES A AND B 8.6 MG TAB PO SCH (09:30)
[2018-10-06] MEDS: HYDROCORTISONE 1% CREAM 1 APPL CRE TOP SCH ×2 (09:30→20:56)
[2018-10-06] MEDS: POTASSIUM CHLORIDE 10 MEQ TER PO SCH ×3 (09:30→15:12)
[2018-10-06] MEDS: DILTIAZEM ER 120 MG C24 PO SCH (09:30)
[2018-10-06] MEDS: METOLAZONE 2.5 MG TABLET PO SCH ×2 (09:31→12:08)
[2018-10-06] MEDS: MULTIVITAMIN2 1 EA TAB PO SCH (09:31)
[2018-10-06] MEDS: ASCORBIC ACID 500 MG TAB PO SCH (09:31)
[2018-10-06] MEDS: NOVOLOG FLEXPEN SC SCH ×4 (09:34→21:03)
[2018-10-06] MEDS: ACETAMINOPHEN 500 MG 500 MG TAB PO PRN (15:52)
[2018-10-06] MEDS: MECLIZINE HYDROCHLORIDE 12.5 MG TAB PO SCH (20:56)
[2018-10-06] MEDS: GABAPENTIN 100 MG CAP PO SCH (20:56)
[2018-10-06] MEDS: ATORVASTATIN 10 MG TAB PO SCH (20:56)
[2018-10-06] MEDS: TRAZODONE HYDROCHLORIDE 50 MG TAB PO SCH (20:57)
[2018-10-07] MEDS: FUROSEMIDE 100 MG SOL IV SCH (06:11)
[2018-10-07] MEDS: SODIUM CHLORIDE 0.9% FLUSH 10 ML SOL IV SCH ×3 (06:11→21:03)
[2018-10-07 07:24] LABS: BASOPHILS % (AUTO) 1 % (0-3); EOSINOPHILS % (AUTO) 4 % (0-9); HEMATOCRIT 30 % (39-53); HEMOGLOBIN 8.9 gm/dl (13.5-17.7); LYMPHOCYTES % (AUTO) 17.8 % (10-50); MEAN CORPUSCULAR HEMOGLOBIN 28.2 pg (27.0-32.0); MEAN CORPUSCULAR VOLUME 94 fL (80-100); MONOCYTES % (AUTO) 10.1 % (0-12); NEUTROPHILS % (AUTO) 66.7 % (37-80)
[2018-10-07 07:36] LABS: CALCIUM 9.3 mg/dl (8.5-10.1); CARBON DIOXIDE 36.2 mEq/L (21-32); CREATININE 1.73 mg/dl (0.80-1.30); POTASSIUM 3.7 mMol/L (3.5-5.1)
[2018-10-07] MEDS: NOVOLOG FLEXPEN SC SCH ×4 (08:09→21:04)
[2018-10-07] MEDS: METOLAZONE 2.5 MG TABLET PO SCH ×2 (08:34→12:58)
[2018-10-07] MEDS: DILTIAZEM ER 120 MG C24 PO SCH (08:34)
[2018-10-07] MEDS: MULTIVITAMIN2 1 EA TAB PO SCH (08:35)
[2018-10-07] MEDS: SENNOSIDES A AND B 8.6 MG TAB PO SCH (08:35)
[2018-10-07] MEDS: HYDROCORTISONE 1% CREAM 1 APPL CRE TOP SCH ×2 (08:36→20:59)
[2018-10-07] MEDS: ASCORBIC ACID 500 MG TAB PO SCH (08:36)
[2018-10-07] MEDS ORDERED: FUROSEMIDE 20mg SOL IV SCH (08:45)
[2018-10-07] MEDS: ENOXAPARIN 40 MG SOL SC SCH (10:34)
[2018-10-07] MEDS: POTASSIUM CHLORIDE 10 MEQ TER PO SCH ×2 (10:35→21:00)
[2018-10-07] MEDS: TORSEMIDE 10 MG TABLET PO SCH ×2 (10:37→12:58)
[2018-10-07 10:42] LABS: ABO B; ANTIBODY SCREEN Negative; RH TYPE Negative; UNIT TYPE O NEGATIVE
[2018-10-07] MEDS: TRAZODONE HYDROCHLORIDE 50 MG TAB PO SCH (20:59)
[2018-10-07] MEDS: MECLIZINE HYDROCHLORIDE 12.5 MG TAB PO SCH (21:00)
[2018-10-07] MEDS: ATORVASTATIN 10 MG TAB PO SCH (21:01)
[2018-10-07] MEDS: GABAPENTIN 100 MG CAP PO SCH (21:01)
[2018-10-08] MEDS: SODIUM CHLORIDE 0.9% FLUSH 10 ML SOL IV SCH ×2 (05:10→14:20)
[2018-10-08 07:32] LABS: CALCIUM 9.5 mg/dl (8.5-10.1); CARBON DIOXIDE 36.3 mEq/L (21-32); CREATININE 1.75 mg/dl (0.80-1.30); POTASSIUM 3.3 mMol/L (3.5-5.1)
[2018-10-08 07:34] LABS: BASOPHILS % (AUTO) 1 % (0-3); EOSINOPHILS % (AUTO) 5 % (0-9); HEMATOCRIT 30 % (39-53); HEMOGLOBIN 9.6 gm/dl (13.5-17.7); LYMPHOCYTES % (AUTO) 16.4 % (10-50); MEAN CORPUSCULAR HEMOGLOBIN 28.8 pg (27.0-32.0); MEAN CORPUSCULAR HGB CONC 31.9 gm/dl (32.0-36.0); MEAN CORPUSCULAR VOLUME 90 fL (80-100); MONOCYTES % (AUTO) 11.6 % (0-12); NEUTROPHILS % (AUTO) 65.7 % (37-80)
[2018-10-08] MEDS: DILTIAZEM ER 120 MG C24 PO SCH (08:09)
[2018-10-08] MEDS: ASCORBIC ACID 500 MG TAB PO SCH (08:10)
[2018-10-08] MEDS: MULTIVITAMIN2 1 EA TAB PO SCH (08:10)
[2018-10-08] MEDS: METOLAZONE 2.5 MG TABLET PO SCH ×2 (08:10→12:43)
[2018-10-08] MEDS: NOVOLOG FLEXPEN SC SCH ×4 (08:11→21:26)
[2018-10-08] MEDS: HYDROCORTISONE 1% CREAM 1 APPL CRE TOP SCH ×2 (08:12→21:27)
[2018-10-08] MEDS: SENNOSIDES A AND B 8.6 MG TAB PO SCH ×2 (08:12→08:23)
[2018-10-08] MEDS: TORSEMIDE 10 MG TABLET PO SCH ×2 (08:13→12:43)
[2018-10-08] MEDS: POTASSIUM CHLORIDE 10 MEQ TER PO SCH ×2 (08:13→21:27)
[2018-10-08] MEDS ORDERED: POTASSIUM CHLORIDE 10 MEQ TER PO ONE (09:00)
[2018-10-08] MEDS: ENOXAPARIN 40 MG SOL SC SCH (09:05)
[2018-10-08] MEDS: TRAZODONE HYDROCHLORIDE 50 MG TAB PO SCH (21:28)
[2018-10-08] MEDS: ATORVASTATIN 10 MG TAB PO SCH (21:28)
[2018-10-08] MEDS: MECLIZINE HYDROCHLORIDE 12.5 MG TAB PO SCH (21:29)
[2018-10-08] MEDS: GABAPENTIN 100 MG CAP PO SCH (21:30)
[2018-10-09] MEDS: ACETAMINOPHEN 500 MG 500 MG TAB PO PRN (05:44)
[2018-10-09 07:27] LABS: CALCIUM 9.4 mg/dl (8.5-10.1); CREATININE 1.6 mg/dl (0.80-1.30); POTASSIUM 3.4 mMol/L (3.5-5.1)
[2018-10-09 07:34] LABS: BASOPHILS % (AUTO) 2 % (0-3); CARBON DIOXIDE 36.8 mEq/L (21-32); EOSINOPHILS % (AUTO) 4 % (0-9); HEMATOCRIT 31 % (39-53); HEMOGLOBIN 9.4 gm/dl (13.5-17.7); LYMPHOCYTES % (AUTO) 15.2 % (10-50); MEAN CORPUSCULAR HEMOGLOBIN 28.3 pg (27.0-32.0); MEAN CORPUSCULAR HGB CONC 30.3 gm/dl (32.0-36.0); MEAN CORPUSCULAR VOLUME 93 fL (80-100); MONOCYTES % (AUTO) 10.6 % (0-12); NEUTROPHILS % (AUTO) 68.3 % (37-80)
[2018-10-09] MEDS: NOVOLOG FLEXPEN SC SCH ×2 (08:29→12:11)
[2018-10-09] MEDS ORDERED: POTASSIUM CHLORIDE 10 MEQ TER PO SCH ×2 (09:00→09:32)
[2018-10-09] MEDS: DILTIAZEM ER 120 MG C24 PO SCH (09:10)
[2018-10-09] MEDS: TORSEMIDE 10 MG TABLET PO SCH (09:13)
[2018-10-09] MEDS: POTASSIUM CHLORIDE 10 MEQ TER PO SCH (09:13)
[2018-10-09] MEDS: MULTIVITAMIN2 1 EA TAB PO SCH (09:14)
[2018-10-09] MEDS: ASCORBIC ACID 500 MG TAB PO SCH (09:15)
[2018-10-09] MEDS: METOLAZONE 2.5 MG TABLET PO SCH (09:15)
[2018-10-09] MEDS: SENNOSIDES A AND B 8.6 MG TAB PO SCH (09:16)
[2018-10-09] MEDS: ENOXAPARIN 40 MG SOL SC SCH (10:05)
[2018-10-09] MEDS: HYDROCORTISONE 1% CREAM 1 APPL CRE TOP SCH (10:06)
[2018-10-09 10:31] VITALS: TEMP 97.7
[2018-10-09 12:02] VITALS: BP 147/83; PULSE 95; RESP 18; O2SAT 95
== END 2018-10-09 13:00 | disposition home health service (06) | DRG 641 ==
LOC: ACUTE CARE 10:19
PROVIDERS: ADMIT Family Medicine; ATTEND Family Medicine
PROC: 30233N1 Transfusion of Nonautologous Red Blood Cells into Peripheral Vein, Percutaneous Approach (ICD-10-PCS; principal; 2018-10-07)
DX: E87.6 Hypokalemia (principal); I50.22 Chronic systolic (congestive) heart failure; R60.9 Edema, unspecified; N50.89 Other specified disorders of the male genital organs; R06.02 Shortness of breath; I48.91 Unspecified atrial fibrillation; I10 Essential (primary) hypertension; E87.8 Other disorders of electrolyte and fluid balance, not elsewhere classified; D64.9 Anemia, unspecified; E87.1 Hypo-osmolality and hyponatremia; R60.0 Localized edema; W06.XXXA Fall from bed, initial encounter; Y92.532 Urgent care center as the place of occurrence of the external cause
CPT/HCPCS: 36415; 71046; 80048; 82962; 85018; 85025; 86850; 86900; 86901; 86920; 93012; 99070; 99238; J1650; J1940; J3480; P9016; A9270-GY; J1815; J2001

== ENCOUNTER 2018-12-08 13:33 | Inpatient (IN) | payer OTHER ==
[2018-12-08 14:00] LABS: BASOPHILS % (AUTO) 0 % (0-3); EOSINOPHILS % (AUTO) 0 % (0-9); HEMATOCRIT 32 % (39-53); HEMOGLOBIN 9.9 gm/dl (13.5-17.7); LYMPHOCYTES % (AUTO) 6.3 % (10-50); MEAN CORPUSCULAR HEMOGLOBIN 26.9 pg (27.0-32.0); MEAN CORPUSCULAR HGB CONC 30.8 gm/dl (32.0-36.0); MEAN CORPUSCULAR VOLUME 87 fL (80-100); MONOCYTES % (AUTO) 5.5 % (0-12); NEUTROPHILS % (AUTO) 87.6 % (37-80)
[2018-12-08 14:05] LABS: INR 1.24 (0.86-1.12)
[2018-12-08 14:21] LABS: ALBUMIN 3.4 gm/dl (3.4-5.0); ALKALINE PHOSPHATASE 133 IU/L (46-116); ALT 18 IU/L (14-63); AST 22 IU/L (15-37); BILIRUBIN,TOTAL 0.7 mg/dl (0.2-1.0); BLOOD UREA NITROGEN 70 mg/dl (7-18); CALCIUM 9.5 mg/dl (8.5-10.1); CARBON DIOXIDE 27.4 mEq/L (21-32); CHLORIDE 92 mMol/L (98-107); CREATININE 2.92 mg/dl (0.80-1.30); GLUCOSE 142 mg/dl (74-106); POTASSIUM 5.7 mMol/L (3.5-5.1); SODIUM 129 mMol/L (136-145); TOTAL PROTEIN 7.2 gm/dl (6.4-8.2)
[2018-12-08 14:22] LABS: ALCOHOL < 0.003 gm/dl (0.000-0.08); AMMONIA 54 umol/L (11-32)
[2018-12-08] MEDS ORDERED: CALCIUM GLUCONATE 10% 1,000 MG in SODIUM CHLORIDE 0.9% 100 ML 100 ML IV ONE (14:28)
[2018-12-08] MEDS ORDERED: SODIUM CHLORIDE 0.9% 1000 ML SOL IV SCH (14:30)
[2018-12-08] MEDS ORDERED: CALCIUM GLUCONATE 10% 100 MG/ML SOL IV ONE (14:36)
[2018-12-08 15:12] LABS: APPEARANCE,URINE Clear; BILIRUBIN,URINE NEGATIVE (NEGATIVE); COLOR,URINE Yellow; GLUCOSE, URINE (UA) NEGATIVE (NEGATIVE); KETONES,URINE NEGATIVE (NEGATIVE); LEUKOCYTE ESTERASE ,URINE NEGATIVE (NEGATIVE); NITRATE,URINE NEGATIVE (NEGATIVE); OCCULT BLOOD,URINE NEGATIVE (NEG-TRACE); UROBILINOGEN,URINE 0.2 (0.2-1.0 EU)
[2018-12-08] MEDS ORDERED: FUROSEMIDE 40 MG SOL IV ONE (15:30)
[2018-12-08 15:36] LABS: BACTERIA 1+ (< 1+); CRYSTALS NEGATIVE (0-3 AVE/HPF); RBC,URINE 0-2 (0-3AV/HPF)
[2018-12-08] MEDS ORDERED: FUROSEMIDE 40 MG SOL ONE (15:36)
[2018-12-08] MEDS ORDERED: ACETAMINOPHEN 500 MG 500 MG TAB PO PRN (18:42)
[2018-12-08] MEDS: SODIUM CHLORIDE 0.9% FLUSH 10 ML SOL IV SCH ×2 (18:58→22:09)
[2018-12-08] MEDS ORDERED: HALOPERIDOL LACTATE 5 MG/ML SOL IV PRN (19:30)
[2018-12-08] MEDS ORDERED: ATORVASTATIN CALCIUM 80 MG TAB PO SCH (21:00)
[2018-12-08] MEDS ORDERED: FUROSEMIDE 40 MG SOL IV SCH (21:00)
[2018-12-08] MEDS ORDERED: GABAPENTIN 100 MG CAP PO SCH (21:00)
[2018-12-08] MEDS ORDERED: POTASSIUM CHLORIDE 10 MEQ TER PO SCH (21:00)
[2018-12-08] MEDS: ATORVASTATIN 10 MG TAB PO SCH (22:00)
[2018-12-08] MEDS ORDERED: ATORVASTATIN 10 MG TAB ONE (22:01)
[2018-12-08] MEDS: ASPIRIN EC 81 MG PO SCH (22:03)
[2018-12-08] MEDS: ENOXAPARIN 100 MG SOL SC SCH (22:03)
[2018-12-08] MEDS: TRAZODONE HYDROCHLORIDE 50 MG TAB PO SCH (22:04)
[2018-12-09] MEDS: SODIUM CHLORIDE 0.9% FLUSH 10 ML SOL IV SCH ×5 (00:07→21:44)
[2018-12-09 07:29] LABS: HEMATOCRIT 31 % (39-53); HEMOGLOBIN 9.7 gm/dl (13.5-17.7); MEAN CORPUSCULAR HEMOGLOBIN 27.6 pg (27.0-32.0); MEAN CORPUSCULAR HGB CONC 31.4 gm/dl (32.0-36.0); MEAN CORPUSCULAR VOLUME 88 fL (80-100)
[2018-12-09 07:48] LABS: CALCIUM 9.4 mg/dl (8.5-10.1); CARBON DIOXIDE 28.5 mEq/L (21-32); CREATININE 2.9 mg/dl (0.80-1.30); POTASSIUM 5.6 mMol/L (3.5-5.1); THYROID STIMULATING HORMONE 29.244 uIU/ml (0.358-3.740)
[2018-12-09 08:05] LABS: BAND NEUTROPHILS % (MANUAL) 1 %; BASOPHILS % (MANUAL) 0 % (0-3); EOSINOPHILS % (MANUAL) 1 % (0-9); LYMPHOCYTES % (MANUAL) 13 % (10-50); MONOCYTES % (MANUAL) 4 % (0-12); NEUTROPHILS % (MANUAL) 81 % (37-80)
[2018-12-09 08:06] LABS: BURR CELLS PRESENT; HELMET CELLS PRESENT; OVALOCYTES PRESENT; POIKILOCYTOSIS MOD AMT; SPHEROCYTES PRESENT; TEAR DROP CELLS PRESENT
[2018-12-09] MEDS ORDERED: METOLAZONE 2.5 MG TAB PO SCH (09:00)
[2018-12-09] MEDS ORDERED: FUROSEMIDE 40 MG SOL IV SCH (09:00)
[2018-12-09] MEDS: SPIRONOLACTONE 25 MG TAB PO SCH (09:44)
[2018-12-09] MEDS: ASPIRIN EC 81 MG PO SCH ×2 (09:44→21:42)
[2018-12-09] MEDS: GLIPIZIDE 5 MG TAB PO SCH (09:45)
[2018-12-09] MEDS: DILTIAZEM ER 120 MG C24 PO SCH (09:45)
[2018-12-09] MEDS: FUROSEMIDE 40 MG SOL IV SCH ×2 (09:45→13:13)
[2018-12-09] MEDS: METOLAZONE 2.5 MG TAB PO SCH ×2 (10:54→15:14)
[2018-12-09] MEDS: ENOXAPARIN 100 MG SOL SC SCH (18:20)
[2018-12-09] MEDS: ATORVASTATIN 10 MG TAB PO SCH (21:40)
[2018-12-09] MEDS: GABAPENTIN 300 MG CAP PO SCH (21:40)
[2018-12-09] MEDS: TRAZODONE HYDROCHLORIDE 50 MG TAB PO SCH (21:41)
[2018-12-09] MEDS: NOVOLOG FLEXPEN SC SCH (22:01)
[2018-12-10] MEDS: SODIUM CHLORIDE 0.9% FLUSH 10 ML SOL IV SCH ×4 (01:18→16:19)
[2018-12-10] MEDS: LEVOTHYROXINE SODIUM 50 MCG TAB PO SCH (06:04)
[2018-12-10 07:41] LABS: CALCIUM 9.5 mg/dl (8.5-10.1); CREATININE 2.77 mg/dl (0.80-1.30); POTASSIUM 4.5 mMol/L (3.5-5.1)
[2018-12-10 07:54] LABS: BASOPHILS % (AUTO) 1 % (0-3); EOSINOPHILS % (AUTO) 1 % (0-9); HEMATOCRIT 31 % (39-53); HEMOGLOBIN 9.7 gm/dl (13.5-17.7); MEAN CORPUSCULAR HEMOGLOBIN 27.3 pg (27.0-32.0); MEAN CORPUSCULAR HGB CONC 30.9 gm/dl (32.0-36.0); MEAN CORPUSCULAR VOLUME 88 fL (80-100); MONOCYTES % (AUTO) 7.3 % (0-12); NEUTROPHILS % (AUTO) 80.5 % (37-80)
[2018-12-10] MEDS ORDERED: FUROSEMIDE 100 MG SOL IV SCH (09:00)
[2018-12-10] MEDS: ASPIRIN EC 81 MG PO SCH ×2 (09:09→20:06)
[2018-12-10] MEDS: SPIRONOLACTONE 25 MG TAB PO SCH (09:09)
[2018-12-10] MEDS: DILTIAZEM ER 120 MG C24 PO SCH (09:09)
[2018-12-10] MEDS: GLIPIZIDE 5 MG TAB PO SCH (09:10)
[2018-12-10] MEDS: METOLAZONE 2.5 MG TAB PO SCH ×2 (09:10→12:26)
[2018-12-10] MEDS: NOVOLOG FLEXPEN SC SCH ×4 (09:14→21:14)
[2018-12-10] MEDS ORDERED: BISACODYL 10 MG SUP PR PRN (12:00)
[2018-12-10] MEDS: FUROSEMIDE 100 MG SOL IV SCH (12:29)
[2018-12-10] MEDS ORDERED: FUROSEMIDE 100 MG SOL IV ONE (15:30)
[2018-12-10] MEDS: ENOXAPARIN 100 MG SOL SC SCH (18:44)
[2018-12-10] MEDS ORDERED: IBUPROFEN 400 MG TAB PO PRN (19:41)
[2018-12-10] MEDS: APIXABAN 5 MG PO SCH (20:05)
[2018-12-10] MEDS: ATORVASTATIN 10 MG TAB PO SCH (20:07)
[2018-12-10] MEDS: TRAZODONE HYDROCHLORIDE 50 MG TAB PO SCH (20:07)
[2018-12-10] MEDS: GABAPENTIN 300 MG CAP PO SCH (20:09)
[2018-12-11] MEDS: SODIUM CHLORIDE 0.9% FLUSH 10 ML SOL IV SCH ×4 (00:49→17:09)
[2018-12-11] MEDS: LEVOTHYROXINE SODIUM 50 MCG TAB PO SCH (06:00)
[2018-12-11 07:31] LABS: BASOPHILS % (AUTO) 1 % (0-3); EOSINOPHILS % (AUTO) 0 % (0-9); HEMATOCRIT 33 % (39-53); LYMPHOCYTES % (AUTO) 6.8 % (10-50); MEAN CORPUSCULAR HEMOGLOBIN 27.1 pg (27.0-32.0); MEAN CORPUSCULAR HGB CONC 30.8 gm/dl (32.0-36.0); MEAN CORPUSCULAR VOLUME 88 fL (80-100); MONOCYTES % (AUTO) 8.2 % (0-12); NEUTROPHILS % (AUTO) 83.6 % (37-80)
[2018-12-11 07:35] LABS: CALCIUM 9.3 mg/dl (8.5-10.1); CARBON DIOXIDE 33.3 mEq/L (21-32); CREATININE 2.57 mg/dl (0.80-1.30); POTASSIUM 4.3 mMol/L (3.5-5.1)
[2018-12-11] MEDS: NOVOLOG FLEXPEN SC SCH ×4 (09:09→21:24)
[2018-12-11] MEDS: FUROSEMIDE 100 MG SOL IV SCH ×2 (10:01→13:16)
[2018-12-11] MEDS: APIXABAN 5 MG PO SCH ×2 (10:02→21:19)
[2018-12-11] MEDS: SPIRONOLACTONE 25 MG TAB PO SCH (10:02)
[2018-12-11] MEDS: GLIPIZIDE 5 MG TAB PO SCH (10:03)
[2018-12-11] MEDS: ASPIRIN EC 81 MG PO SCH ×2 (10:03→21:17)
[2018-12-11] MEDS: DILTIAZEM ER 120 MG C24 PO SCH (10:03)
[2018-12-11] MEDS: METOLAZONE 2.5 MG TAB PO SCH ×2 (10:03→13:18)
[2018-12-11] MEDS ORDERED: POLYETHYLENE GLYCOL 17 GM/1 TBS PDS PO PRN (18:49)
[2018-12-11] MEDS ORDERED: DOCUSATE SODIUM 100 MG SGL PO PRN (18:50)
[2018-12-11] MEDS: ENOXAPARIN 100 MG SOL SC SCH (19:47)
[2018-12-11] MEDS: ATORVASTATIN CALCIUM 40 MG TAB PO SCH (21:17)
[2018-12-11] MEDS: GABAPENTIN 300 MG CAP PO SCH (21:17)
[2018-12-11] MEDS: TRAZODONE HYDROCHLORIDE 50 MG TAB PO SCH (21:18)
[2018-12-12] MEDS: SODIUM CHLORIDE 0.9% FLUSH 10 ML SOL IV SCH ×3 (02:50→17:44)
[2018-12-12] MEDS: LEVOTHYROXINE SODIUM 50 MCG TAB PO SCH (05:59)
[2018-12-12] MEDS: NOVOLOG FLEXPEN SC SCH ×4 (07:50→20:31)
[2018-12-12 08:22] LABS: CALCIUM 9.3 mg/dl (8.5-10.1); CARBON DIOXIDE 33.1 mEq/L (21-32); CREATININE 2.4 mg/dl (0.80-1.30); POTASSIUM 4.4 mMol/L (3.5-5.1)
[2018-12-12 08:31] LABS: BASOPHILS % (AUTO) 0 % (0-3); EOSINOPHILS % (AUTO) 1 % (0-9); HEMATOCRIT 33 % (39-53); HEMOGLOBIN 10.1 gm/dl (13.5-17.7); LYMPHOCYTES % (AUTO) 11.5 % (10-50); MEAN CORPUSCULAR HGB CONC 30.7 gm/dl (32.0-36.0); MEAN CORPUSCULAR VOLUME 88 fL (80-100); MONOCYTES % (AUTO) 7.1 % (0-12); NEUTROPHILS % (AUTO) 80.4 % (37-80)
[2018-12-12] MEDS: SPIRONOLACTONE 25 MG TAB PO SCH (08:33)
[2018-12-12] MEDS: APIXABAN 5 MG PO SCH ×2 (08:34→20:37)
[2018-12-12] MEDS: ASPIRIN EC 81 MG PO SCH (08:34)
[2018-12-12] MEDS: DILTIAZEM ER 120 MG C24 PO SCH (08:35)
[2018-12-12] MEDS: GLIPIZIDE 5 MG TAB PO SCH (08:36)
[2018-12-12] MEDS: METOLAZONE 2.5 MG TAB PO SCH ×2 (08:36→12:03)
[2018-12-12] MEDS: FUROSEMIDE 100 MG SOL IV SCH ×2 (08:54→11:56)
[2018-12-12] MEDS: TRAZODONE HYDROCHLORIDE 50 MG TAB PO SCH (20:28)
[2018-12-12] MEDS: GABAPENTIN 300 MG CAP PO SCH (20:29)
[2018-12-12] MEDS: ATORVASTATIN CALCIUM 40 MG TAB PO SCH (20:30)
[2018-12-13] MEDS: SODIUM CHLORIDE 0.9% FLUSH 10 ML SOL IV SCH ×4 (00:34→18:30)
[2018-12-13] MEDS: LEVOTHYROXINE SODIUM 50 MCG TAB PO SCH (06:12)
[2018-12-13] MEDS: METOLAZONE 2.5 MG TAB PO SCH ×2 (08:37→11:36)
[2018-12-13] MEDS: APIXABAN 5 MG PO SCH ×2 (08:37→21:35)
[2018-12-13] MEDS: GLIPIZIDE 5 MG TAB PO SCH (08:38)
[2018-12-13] MEDS: DILTIAZEM ER 120 MG C24 PO SCH (08:38)
[2018-12-13] MEDS: NOVOLOG FLEXPEN SC SCH ×4 (08:38→21:42)
[2018-12-13] MEDS: SPIRONOLACTONE 25 MG TAB PO SCH (08:39)
[2018-12-13] MEDS: FUROSEMIDE 100 MG SOL IV SCH ×2 (08:48→11:36)
[2018-12-13] MEDS: TRAZODONE HYDROCHLORIDE 50 MG TAB PO SCH (21:27)
[2018-12-13] MEDS: ATORVASTATIN CALCIUM 40 MG TAB PO SCH (21:33)
[2018-12-13] MEDS: GABAPENTIN 300 MG CAP PO SCH (21:37)
[2018-12-14] MEDS: SODIUM CHLORIDE 0.9% FLUSH 10 ML SOL IV SCH ×3 (01:51→16:49)
[2018-12-14] MEDS: LEVOTHYROXINE SODIUM 50 MCG TAB PO SCH (06:22)
[2018-12-14 08:21] LABS: BILIRUBIN,TOTAL 0.7 mg/dl (0.2-1.0); CALCIUM 8.9 mg/dl (8.5-10.1); CARBON DIOXIDE 34.7 mEq/L (21-32); CREATININE 2.27 mg/dl (0.80-1.30); TOTAL PROTEIN 6.3 gm/dl (6.4-8.2)
[2018-12-14 08:23] LABS: BASOPHILS % (AUTO) 1 % (0-3); EOSINOPHILS % (AUTO) 1 % (0-9); HEMATOCRIT 28 % (39-53); HEMOGLOBIN 8.7 gm/dl (13.5-17.7); LYMPHOCYTES % (AUTO) 14.2 % (10-50); MEAN CORPUSCULAR HEMOGLOBIN 27.4 pg (27.0-32.0); MEAN CORPUSCULAR HGB CONC 31.4 gm/dl (32.0-36.0); MEAN CORPUSCULAR VOLUME 87 fL (80-100); MONOCYTES % (AUTO) 13.2 % (0-12); NEUTROPHILS % (AUTO) 70.4 % (37-80)
[2018-12-14] MEDS: NOVOLOG FLEXPEN SC SCH ×4 (09:14→21:33)
[2018-12-14] MEDS: SPIRONOLACTONE 25 MG TAB PO SCH (10:12)
[2018-12-14] MEDS: METOLAZONE 2.5 MG TAB PO SCH ×2 (10:13→12:53)
[2018-12-14] MEDS: DILTIAZEM ER 120 MG C24 PO SCH (10:16)
[2018-12-14] MEDS: TORSEMIDE 10 MG TABLET PO SCH ×2 (12:54→16:48)
[2018-12-14] MEDS: TRAZODONE HYDROCHLORIDE 50 MG TAB PO SCH (21:38)
[2018-12-15 01:52] VITALS: O2SAT 96
[2018-12-15] MEDS: SODIUM CHLORIDE 0.9% FLUSH 10 ML SOL IV SCH (02:52)
[2018-12-15] MEDS: LEVOTHYROXINE SODIUM 50 MCG TAB PO SCH (06:51)
[2018-12-15 07:08] LABS: *FOLATE 14.9 ng/mL (2.6-20.0)
[2018-12-15 07:42] VITALS: BP 128/76; PULSE 86; RESP 16; TEMP 97
[2018-12-15] MEDS ORDERED: ENOXAPARIN 100 MG SOL SC SCH (09:30)
[2018-12-15] MEDS: NOVOLOG FLEXPEN SC SCH ×2 (09:44→12:20)
[2018-12-15] MEDS: METOLAZONE 2.5 MG TAB PO SCH ×2 (09:47→12:18)
[2018-12-15] MEDS: DILTIAZEM ER 120 MG C24 PO SCH (09:47)
[2018-12-15] MEDS: TORSEMIDE 10 MG TABLET PO SCH ×2 (09:47→12:18)
[2018-12-15] MEDS: SPIRONOLACTONE 25 MG TAB PO SCH (09:47)
[2018-12-15 10:34] LABS: BASOPHILS % (AUTO) 1 % (0-3); EOSINOPHILS % (AUTO) 1 % (0-9); HEMATOCRIT 27 % (39-53); HEMOGLOBIN 8.6 gm/dl (13.5-17.7); LYMPHOCYTES % (AUTO) 24.8 % (10-50); MEAN CORPUSCULAR HEMOGLOBIN 27.3 pg (27.0-32.0); MEAN CORPUSCULAR HGB CONC 31.1 gm/dl (32.0-36.0); MEAN CORPUSCULAR VOLUME 88 fL (80-100); MONOCYTES % (AUTO) 7.9 % (0-12); NEUTROPHILS % (AUTO) 65.3 % (37-80)
[2018-12-15 10:37] LABS: CALCIUM 9.8 mg/dl (8.5-10.1); CARBON DIOXIDE 34.8 mEq/L (21-32); CREATININE 2.27 mg/dl (0.80-1.30); POTASSIUM 4.4 mMol/L (3.5-5.1)
== END 2018-12-15 12:30 | DRG 683 ==
LOC: ED 13:33 → ACUTE CARE 16:11 → UNDOADMIN 16:11 → ACUTE CARE 16:25
PROVIDERS: ADMIT Family Medicine; ATTEND Family Medicine
PROC: F01L5ZZ Range of Motion and Joint Integrity Assessment of Musculoskeletal System - Lower Back / Lower Extremity (ICD-10-PCS; principal; 2018-12-08)
PROC: F01L0FZ Muscle Performance Assessment of Musculoskeletal System - Lower Back / Lower Extremity using Assistive, Adaptive, Supportive or Protective Equipment (ICD-10-PCS; 2018-12-08)
PROC: F01ZDFZ Gait and/or Balance Assessment using Assistive, Adaptive, Supportive or Protective Equipment (ICD-10-PCS; 2018-12-08)
PROC: F02Z3FZ Grooming/Personal Hygiene Assessment using Assistive, Adaptive, Supportive or Protective Equipment (ICD-10-PCS; 2018-12-08)
PROC: F02Z0ZZ Bathing/Showering Assessment (ICD-10-PCS; 2018-12-08)
DX: N17.9 Acute kidney failure, unspecified (principal); I50.9 Heart failure, unspecified; N17.8 Other acute kidney failure; N18.4 Chronic kidney disease, stage 4 (severe); E87.1 Hypo-osmolality and hyponatremia; R53.83 Other fatigue; E87.5 Hyperkalemia; I50.22 Chronic systolic (congestive) heart failure; E03.9 Hypothyroidism, unspecified; D64.89 Other specified anemias; E11.9 Type 2 diabetes mellitus without complications; R06.02 Shortness of breath; R60.9 Edema, unspecified; R07.9 Chest pain, unspecified; I48.91 Unspecified atrial fibrillation; R41.82 Altered mental status, unspecified; R53.1 Weakness
CPT/HCPCS: 36415; 70450; 80048; 80053; 80307; 81001; 82140; 82962; 83880; 84443; 84484; 85007; 85025; 85027; 85610; 93005; 93012; 96365; 96374; 99231; 99284; 99285; J0610; J1630; J1650; J1940; A6232; A6402; A9270-GY; J1815

== ENCOUNTER 2018-12-20 14:01 | Emergency (ER) | payer OTHER ==
[2018-12-20 20:17] VITALS: O2SAT 95
[2018-12-20 20:18] VITALS: RESP 114
[2018-12-20 20:21] VITALS: BP 141/97; PULSE 118
== END 2018-12-20 20:36 | DRG 884 ==
LOC: ED 14:01
DX: F03.91 Unspecified dementia, unspecified severity, with behavioral disturbance (principal); W19.XXXA Unspecified fall, initial encounter; F31.9 Bipolar disorder, unspecified
CPT/HCPCS: 99283; 99284